=== PATIENT | female | born 1930 | race Caucasian/White ===

== ENCOUNTER 2017-03-27 17:57 | Emergency (ER) | payer OTHER ==
[~2017-03-27] VITALS: Ht 175.3 cm; Wt 60.3 kg
[~2017-03-27 17:57] MED LIST: ACET325 PO; ALPR.25 PO; ALPR.5 PO; ALPR1 PO; AMIT10 PO; AMITIZA; AMITIZA 8 MCG; AMLO5 PO; ANTI DIARRHEA; ARTTEAOPSO BOTHEYES; ASPI81CH PO; ASPI81EC PO; AVINZA; Amitiza24 MCG PO; Amitiza8 MCG PO; Anti-Diarrheal2 MG PO; Artificial Tea1 EACH OP; BACL10 PO; BISA10S PR; BISA5EC PO; Baclofen10 MG PO; CARB25 PO; CARBI50; CARBLEV25 PO; CHLORHEXIDINE FL1 ML MC; CITA20 PO; CODACE30; CONEST.625 PO; CVS DISPOSABLE399 ML PR; Carbidopa-Levo1 EAC1 PO; DIAZ5 PO; DICL25ER PO; DICLOFENAC SOD100 GM TOP; ERGO50000 PO; ESCI10 PO; ESCI20 PO; HYDACE10 PO; HYDACE10B PO; HYDACE7.5 PO; HYDPAM25 PO; HYDR1TAB94 PO; Hydrocodone-Ap1 EA23 PO; LAVAP17G PO; LEVCAR2510 PO; LEVSOD50 PO; LINZESS145 MCG PO; LISHYD1012 PO; LISI10 PO; LISI5 PO; LITH300C; LITH300C PO; LITH300ER PO; LOPE2C PO; Lithium Carbon150 MG PO; MAGCIT300 PO; METPRE4DP PO; MIRT15 PO; Macrobid 100 M100 MG PO; Milk Of Ma400 MG/5 M PO; Mirtazapine7.5 MG PO; POLY17UD PO; POTCHL10ER PO; PROP30DR OP; Percocet 5-3251 EACH PO; QUET100 PO; QUET200 PO; QUET25 PO; QUET300 PO; SENN187 PO; SENOKOT S; Synthroid25 MCG PO; VITAMIN B50 COMPLEX; VOLTAREN; Voltaren100 GM TP
[2017-03-27 18:49] LABS: BASOPHILS ABSOLUTE AUTO 0.03 K/mm3 (0.00-0.23); BASOPHILS PERCENT AUTO 0 % (0-2); EOSINOPHILS ABSOLUTE AUTO 0.09 K/mm3 (0.00-0.68); EOSINOPHILS PERCENT AUTO 1 % (0-6); Hematocrit 37.5 % (33.0-51.0); IMMATURE GRAN ABSOLUTE AUTO 0.02 K/mm3 (0.00-0.10); IMMATURE GRAN PERCENT AUTO 0 % (0-1); LYMPHOCYTES ABSOLUTE AUTO 1.49 K/mm3 (0.84-5.20); LYMPHOCYTES PERCENT AUTO 18 % (21-46); MONOCYTES ABSOLUTE AUTO 0.89 K/mm3 (0.16-1.47); MONOCYTES PERCENT AUTO 11 % (4-13); Mean Corpuscular HGB 29.9 pg (26.0-34.0); Mean Corpuscular Volume 94 fL (80-100); Mean Platelet Volume 9.8 fL (9.1-12.4); NEUTROPHILS ABSOLUTE AUTO 5.86 K/mm3 (1.96-9.15); NEUTROPHILS PERCENT AUTO 70 % (41-73); Platelet Count 216 K/mm3 (150-400); RDW Coefficient Variation 13.5 % (11.7-14.2); Red Blood Cell Count 4.01 M/mm3 (3.80-5.20); White Blood Cell Count 8.38 K/mm3 (4.00-11.30)
[2017-03-27 18:58] LABS: Source, Urine Clean Catch
[2017-03-27 19:05] LABS: Calcium, Blood 8.8 mg/dL (8.5-10.1); Creatinine, Blood 1.22 mg/dL (0.40-1.00); Potassium, Blood 4.3 mmol/L (3.5-5.5)
[2017-03-27 19:09] LABS: Appearance, Urine Clear (Clear); Bilirubin, Urine Neg (Neg); Blood, Urine 2+ (Neg); Color, Urine Yellow (P-Yellow); Glucose Qualitative, Urine Neg (Neg); Ketones, Urine Neg (Neg); Leukocyte Esterase, Urine 3+ (Neg); Nitrite, Urine Neg (Neg); Protein, Urine 1+ (Neg); Specific Gravity, Urine 1.005 (1.003-1.022); Urobilinogen, Urine NORM (Normal); pH, Urine 6.5 (5.0-8.0)
[2017-03-27 20:22] LABS: Bacteria Few /hpf; Red Blood Cells, Urine 0-2 /hpf (0-2); Squamous Epithelial Cells Not Seen /hpf (Few)
[2017-03-27] MEDS ORDERED: Bactrim Ds Tab1 EACH PO (20:35)
[2017-07-06] MEDS ORDERED: AMLO10 PO (02:44)
[2017-07-06] MEDS ORDERED: Citroma296 ML (02:44)
[2017-07-06] MEDS ORDERED: ONDA8 PO (02:44)
[2017-07-06] MEDS ORDERED: CITROMA (02:44)
[2017-07-06] MEDS ORDERED: Enulose10 GM/15 M PO (02:45)
[2017-07-06] MEDS ORDERED: ESCI20 PO (02:45)
[2017-07-06] MEDS ORDERED: LOPE2C PO (02:46)
[2017-07-06] MEDS ORDERED: Lithium Carbon150 MG PO (02:46)
[2017-07-06] MEDS ORDERED: Macrodantin100 MG PO (02:47)
[2017-07-06] MEDS ORDERED: LINZESS145 MCG PO (02:47)
[2017-07-06] MEDS ORDERED: QUET100 PO (02:47)
[2017-07-06] MEDS ORDERED: ALPR.5 PO (02:48)
[2017-07-06] MEDS ORDERED: MIRT15 PO (02:48)
[2017-07-06] MEDS ORDERED: Carbidopa-Levo1 EAC1 PO (02:48)
== END 2017-03-27 22:30 | disposition home or self-care (01) ==
LOC: ER 17:57
PROVIDERS: Emergency Medicine
DX: N39.0 Urinary tract infection, site not specified (principal); Z88.0 Allergy status to penicillin; Z79.899 Other long term (current) drug therapy; F03.90 Unspecified dementia, unspecified severity, without behavioral disturbance, psychotic disturbance, mood disturbance, and anxiety; F41.9 Anxiety disorder, unspecified; F32.9 Major depressive disorder, single episode, unspecified; J44.9 Chronic obstructive pulmonary disease, unspecified; I50.9 Heart failure, unspecified; N18.9 Chronic kidney disease, unspecified
CPT/HCPCS: 36415; 80048; 81001; 85025; 87077; 87086; 87186; 99283; P9612

== ENCOUNTER 2017-04-23 08:35 | Emergency (ER) | payer OTHER ==
[~2017-04-23] VITALS: Ht 172.7 cm; Wt 59.0 kg
[~2017-04-23 08:35] MED LIST changes: +Bactrim Ds Tab1 EACH PO
[2017-04-23] MEDS ORDERED: BACL10 PO (08:51)
[2017-04-23 09:33] LABS: BASOPHILS ABSOLUTE AUTO 0.03 K/mm3 (0.00-0.23); BASOPHILS PERCENT AUTO 0 % (0-2); EOSINOPHILS ABSOLUTE AUTO 0.05 K/mm3 (0.00-0.68); EOSINOPHILS PERCENT AUTO 1 % (0-6); Hematocrit 41.6 % (33.0-51.0); Hemoglobin 12.8 g/dL (11.5-16.0); IMMATURE GRAN ABSOLUTE AUTO 0.04 K/mm3 (0.00-0.10); IMMATURE GRAN PERCENT AUTO 0 % (0-1); LYMPHOCYTES ABSOLUTE AUTO 0.56 K/mm3 (0.84-5.20); LYMPHOCYTES PERCENT AUTO 5 % (21-46); MONOCYTES ABSOLUTE AUTO 0.19 K/mm3 (0.16-1.47); MONOCYTES PERCENT AUTO 2 % (4-13); Mean Corpuscular HGB 29.7 pg (26.0-34.0); Mean Corpuscular HGB Conc 30.8 g/dL (31.5-36.5); Mean Corpuscular Volume 97 fL (80-100); Mean Platelet Volume 9.5 fL (9.1-12.4); NEUTROPHILS ABSOLUTE AUTO 10.19 K/mm3 (1.96-9.15); NEUTROPHILS PERCENT AUTO 92 % (41-73); Platelet Count 267 K/mm3 (150-400); RDW Coefficient Variation 14.4 % (11.7-14.2); RDW Standard Deviation 50.8 fL (35.1-46.3); Red Blood Cell Count 4.31 M/mm3 (3.80-5.20); White Blood Cell Count 11.06 K/mm3 (4.00-11.30)
[2017-04-23 09:59] LABS: Albumin, Blood 3.7 g/dL (3.4-5.0); Bilirubin, Total 0.6 mg/dL (0.1-1.0); Bun/Creatinine Ratio 16.9 (12.0-20.0); Calcium, Blood 9.4 mg/dL (8.5-10.1); Creatinine, Blood 1.36 mg/dL (0.40-1.00); Globulin, Blood 3.8 g/dL (2.2-4.0); Potassium, Blood 4.2 mmol/L (3.5-5.5); Total Protein, Blood 7.5 g/dL (6.4-8.2)
[2017-04-23 10:39] LABS: Lithium <0.20 mmol/L (0.60-1.20)
[2017-04-23] MEDS ORDERED: Macrobid 100 M100 MG PO (11:02)
[2017-07-06] MEDS ORDERED: CITROMA (02:44)
[2017-07-06] MEDS ORDERED: Citroma296 ML (02:44)
[2017-07-06] MEDS ORDERED: ONDA8 PO (02:44)
[2017-07-06] MEDS ORDERED: AMLO10 PO (02:44)
[2017-07-06] MEDS ORDERED: ESCI20 PO (02:45)
[2017-07-06] MEDS ORDERED: Enulose10 GM/15 M PO (02:45)
[2017-07-06] MEDS ORDERED: LOPE2C PO (02:46)
[2017-07-06] MEDS ORDERED: Lithium Carbon150 MG PO (02:46)
[2017-07-06] MEDS ORDERED: QUET100 PO (02:47)
[2017-07-06] MEDS ORDERED: LINZESS145 MCG PO (02:47)
[2017-07-06] MEDS ORDERED: Macrodantin100 MG PO (02:47)
[2017-07-06] MEDS ORDERED: ALPR.5 PO (02:48)
[2017-07-06] MEDS ORDERED: MIRT15 PO (02:48)
[2017-07-06] MEDS ORDERED: Carbidopa-Levo1 EAC1 PO (02:48)
== END 2017-04-23 13:45 | disposition home or self-care (01) ==
LOC: ER 08:35
PROVIDERS: Emergency Medicine
DX: N39.0 Urinary tract infection, site not specified (principal); Z88.0 Allergy status to penicillin; Z88.8 Allergy status to other drugs, medicaments and biological substances; Z79.899 Other long term (current) drug therapy; Z79.891 Long term (current) use of opiate analgesic; F03.90 Unspecified dementia, unspecified severity, without behavioral disturbance, psychotic disturbance, mood disturbance, and anxiety; F41.9 Anxiety disorder, unspecified; F32.9 Major depressive disorder, single episode, unspecified; F31.9 Bipolar disorder, unspecified; J44.9 Chronic obstructive pulmonary disease, unspecified; I50.9 Heart failure, unspecified; F17.210 Nicotine dependence, cigarettes, uncomplicated
CPT/HCPCS: 36415; 80053; 80178; 83690; 85025; 96361; 96365; 99283; J0696; J7030

== ENCOUNTER 2017-04-29 10:12 | Emergency (ER) | payer OTHER ==
[~2017-04-29] VITALS: Ht 172.7 cm; Wt 59.0 kg
[2017-04-29] MEDS ORDERED: AMLO10 PO (10:28)
[2017-04-29] MEDS ORDERED: Clotrimazole-Be15 GM TOP (10:47)
[2017-04-29 10:54] LABS: Source, Urine Catheter
[2017-04-29 11:02] LABS: Bilirubin, Urine Neg (Neg); Blood, Urine Neg (Neg); Glucose Qualitative, Urine Neg (Neg); Ketones, Urine Neg (Neg); Leukocyte Esterase, Urine Neg (Neg); Nitrite, Urine Neg (Neg); Protein, Urine Neg (Neg); Specific Gravity, Urine 1.005 (1.003-1.022); Urobilinogen, Urine NORM (Normal)
[2017-04-29 11:09] LABS: BASOPHILS ABSOLUTE AUTO 0.05 K/mm3 (0.00-0.23); BASOPHILS PERCENT AUTO 1 % (0-2); EOSINOPHILS ABSOLUTE AUTO 0.15 K/mm3 (0.00-0.68); EOSINOPHILS PERCENT AUTO 2 % (0-6); Hematocrit 40.1 % (33.0-51.0); Hemoglobin 12.5 g/dL (11.5-16.0); IMMATURE GRAN ABSOLUTE AUTO 0.08 K/mm3 (0.00-0.10); IMMATURE GRAN PERCENT AUTO 1 % (0-1); LYMPHOCYTES ABSOLUTE AUTO 1.62 K/mm3 (0.84-5.20); LYMPHOCYTES PERCENT AUTO 19 % (21-46); MONOCYTES ABSOLUTE AUTO 0.87 K/mm3 (0.16-1.47); MONOCYTES PERCENT AUTO 10 % (4-13); Mean Corpuscular HGB 29.2 pg (26.0-34.0); Mean Corpuscular HGB Conc 31.2 g/dL (31.5-36.5); NEUTROPHILS ABSOLUTE AUTO 5.86 K/mm3 (1.96-9.15); NEUTROPHILS PERCENT AUTO 68 % (41-73); Platelet Count 276 K/mm3 (150-400); RDW Coefficient Variation 15.1 % (11.7-14.2); RDW Standard Deviation 52.2 fL (35.1-46.3); Red Blood Cell Count 4.28 M/mm3 (3.80-5.20); White Blood Cell Count 8.63 K/mm3 (4.00-11.30)
[2017-04-29 11:13] LABS: Appearance, Urine Clear (Clear); Color, Urine Pale Yellow (P-Yellow)
[2017-04-29 11:14] LABS: Mean Corpuscular Volume 94 fL (80-100)
[2017-04-29 11:28] LABS: Albumin, Blood 3.2 g/dL (3.4-5.0); Albumin/Globulin Ratio 0.7 (0.8-1.8); Bilirubin, Total 0.4 mg/dL (0.1-1.0); Bun/Creatinine Ratio 15.7 (12.0-20.0); Calcium, Blood 9.9 mg/dL (8.5-10.1); Creatinine, Blood 1.27 mg/dL (0.40-1.00); Globulin, Blood 4.4 g/dL (2.2-4.0); Potassium, Blood 4.6 mmol/L (3.5-5.5); Total Protein, Blood 7.6 g/dL (6.4-8.2)
[2017-04-29 11:57] LABS: Influenza A Negative (NEGATIVE); Influenza B Negative (NEGATIVE)
[2017-04-29] MEDS ORDERED: Prednisone20 MG PO (13:00)
[2017-04-29] MEDS ORDERED: Zithromax250 MG PO (13:00)
[2017-07-06] MEDS ORDERED: ONDA8 PO (02:44)
[2017-07-06] MEDS ORDERED: CITROMA (02:44)
[2017-07-06] MEDS ORDERED: Citroma296 ML (02:44)
[2017-07-06] MEDS ORDERED: AMLO10 PO (02:44)
[2017-07-06] MEDS ORDERED: Enulose10 GM/15 M PO (02:45)
[2017-07-06] MEDS ORDERED: ESCI20 PO (02:45)
[2017-07-06] MEDS ORDERED: Lithium Carbon150 MG PO (02:46)
[2017-07-06] MEDS ORDERED: LOPE2C PO (02:46)
[2017-07-06] MEDS ORDERED: QUET100 PO (02:47)
[2017-07-06] MEDS ORDERED: Macrodantin100 MG PO (02:47)
[2017-07-06] MEDS ORDERED: LINZESS145 MCG PO (02:47)
[2017-07-06] MEDS ORDERED: ALPR.5 PO (02:48)
[2017-07-06] MEDS ORDERED: Carbidopa-Levo1 EAC1 PO (02:48)
[2017-07-06] MEDS ORDERED: MIRT15 PO (02:48)
== END 2017-04-29 13:18 | disposition home or self-care (01) ==
LOC: ER 10:12
PROVIDERS: Emergency Medicine
DX: J44.1 Chronic obstructive pulmonary disease with (acute) exacerbation (principal); N18.9 Chronic kidney disease, unspecified; F03.90 Unspecified dementia, unspecified severity, without behavioral disturbance, psychotic disturbance, mood disturbance, and anxiety; F41.9 Anxiety disorder, unspecified; F31.9 Bipolar disorder, unspecified; I50.9 Heart failure, unspecified; F17.210 Nicotine dependence, cigarettes, uncomplicated; Z88.0 Allergy status to penicillin; Z91.09 Other allergy status, other than to drugs and biological substances; Z79.899 Other long term (current) drug therapy
CPT/HCPCS: 36415; 71046; 80053; 81003; 85025; 87804; 93005; 93010; 94644; 99283; P9612

== ENCOUNTER 2017-05-19 20:43 | Emergency (ER) | payer OTHER ==
[~2017-05-19] VITALS: Ht 172.7 cm; Wt 56.7 kg
[~2017-05-19 20:43] MED LIST changes: +AMLO10 PO; +Clotrimazole-Be15 GM TOP; +Prednisone20 MG PO; +Zithromax250 MG PO
[2017-05-19 21:43] LABS: BASOPHILS ABSOLUTE AUTO 0.06 K/mm3 (0.00-0.23); BASOPHILS PERCENT AUTO 1 % (0-2); EOSINOPHILS ABSOLUTE AUTO 0.25 K/mm3 (0.00-0.68); EOSINOPHILS PERCENT AUTO 4 % (0-6); Hematocrit 38.1 % (33.0-51.0); Hemoglobin 11.8 g/dL (11.5-16.0); IMMATURE GRAN ABSOLUTE AUTO 0.05 K/mm3 (0.00-0.10); IMMATURE GRAN PERCENT AUTO 1 % (0-1); LYMPHOCYTES ABSOLUTE AUTO 1.86 K/mm3 (0.84-5.20); LYMPHOCYTES PERCENT AUTO 27 % (21-46); MONOCYTES ABSOLUTE AUTO 0.48 K/mm3 (0.16-1.47); MONOCYTES PERCENT AUTO 7 % (4-13); Mean Corpuscular Volume 94 fL (80-100); Mean Platelet Volume 9.1 fL (9.1-12.4); NEUTROPHILS ABSOLUTE AUTO 4.13 K/mm3 (1.96-9.15); NEUTROPHILS PERCENT AUTO 61 % (41-73); Platelet Count 308 K/mm3 (150-400); RDW Coefficient Variation 14.3 % (11.7-14.2); RDW Standard Deviation 49.2 fL (35.1-46.3); Red Blood Cell Count 4.07 M/mm3 (3.80-5.20); White Blood Cell Count 6.83 K/mm3 (4.00-11.30)
[2017-05-19 22:03] LABS: Alanine Aminotransfer (ALT/SGP 7 U/L (12-78); Albumin, Blood 3.3 g/dL (3.4-5.0); Albumin/Globulin Ratio 0.9 (0.8-1.8); Alk Phos 121 U/L (50-136); Anion Gap 8 mmol/L (6-16); Aspartate Aminotrans (AST/SGOT 13 U/L (12-37); Bilirubin, Total 0.1 mg/dL (0.1-1.0); Blood Urea Nitrogen 23 mg/dL (8-24); Bun/Creatinine Ratio 18.4 (12.0-20.0); CO2, Blood 24 mmol/L (21-32); Calcium, Blood 9.1 mg/dL (8.5-10.1); Chloride, Blood 109 mmol/L (98-108); Creatinine, Blood 1.25 mg/dL (0.40-1.00); Globulin, Blood 3.7 g/dL (2.2-4.0); Glomerular Filtration Rate 43 (60-); Glucose, Blood 116 mg/dL (70-99); Potassium, Blood 3.9 mmol/L (3.5-5.5); Sodium, Blood 141 mmol/L (136-145); Troponin I <0.015 ng/mL (0.000-0.040)
[2017-05-19 22:32] LABS: Source, Urine Clean Catch
[2017-05-19 22:37] LABS: Bilirubin, Urine Neg (Neg); Blood, Urine 4+ (Neg); Glucose Qualitative, Urine Neg (Neg); Ketones, Urine Neg (Neg); Leukocyte Esterase, Urine 3+ (Neg); Nitrite, Urine Pos (Neg); Protein, Urine 2+ (Neg); Urobilinogen, Urine NORM (Normal)
[2017-05-19 22:49] LABS: Appearance, Urine Turbid (Clear); Color, Urine Yellow (P-Yellow)
[2017-05-19 22:50] LABS: Bacteria Many /hpf; Red Blood Cells, Urine 0-2 /hpf (0-2); Squamous Epithelial Cells Rare /hpf (Few); White Blood Cells, Urine TNTC /hpf (0-5)
[2017-05-19] MEDS ORDERED: CEPH500 PO (22:58)
[2017-05-19] MEDS ORDERED: Zofran Odt8 MG SL (22:58)
[2017-05-19] MEDS ORDERED: Kristalose20 GM PO (22:58)
[2017-07-06] MEDS ORDERED: Citroma296 ML (02:44)
[2017-07-06] MEDS ORDERED: ONDA8 PO (02:44)
[2017-07-06] MEDS ORDERED: AMLO10 PO (02:44)
[2017-07-06] MEDS ORDERED: CITROMA (02:44)
[2017-07-06] MEDS ORDERED: ESCI20 PO (02:45)
[2017-07-06] MEDS ORDERED: Enulose10 GM/15 M PO (02:45)
[2017-07-06] MEDS ORDERED: LOPE2C PO (02:46)
[2017-07-06] MEDS ORDERED: Lithium Carbon150 MG PO (02:46)
[2017-07-06] MEDS ORDERED: Macrodantin100 MG PO (02:47)
[2017-07-06] MEDS ORDERED: LINZESS145 MCG PO (02:47)
[2017-07-06] MEDS ORDERED: QUET100 PO (02:47)
[2017-07-06] MEDS ORDERED: MIRT15 PO (02:48)
[2017-07-06] MEDS ORDERED: ALPR.5 PO (02:48)
[2017-07-06] MEDS ORDERED: Carbidopa-Levo1 EAC1 PO (02:48)
== END 2017-05-19 23:20 | disposition home or self-care (01) ==
LOC: ER 20:43
PROVIDERS: Emergency Medicine
DX: K59.00 Constipation, unspecified (principal); N39.0 Urinary tract infection, site not specified; F31.9 Bipolar disorder, unspecified; F03.90 Unspecified dementia, unspecified severity, without behavioral disturbance, psychotic disturbance, mood disturbance, and anxiety; Z86.73 Personal history of transient ischemic attack (TIA), and cerebral infarction without residual deficits; Z79.899 Other long term (current) drug therapy
CPT/HCPCS: 36415; 74176; 80053; 81001; 83690; 84484; 85025; 87077; 87086; 87186; 93005; 93010; 99284

== ENCOUNTER → 2017-06-26 | Outpatient (CLI) | payer OTHER ==
[~2017-06-26] MED LIST changes: +CEPH500 PO; +CITROMA; +Citroma296 ML; +Enulose10 GM/15 M PO; +Kristalose20 GM PO; +Macrodantin100 MG PO; +ONDA8 PO; +Zofran Odt8 MG SL
[2017-06-26 11:31] LABS: Bilirubin, Urine Neg (Neg); Blood, Urine Neg (Neg); Glucose Qualitative, Urine Neg (Neg); Ketones, Urine Neg (Neg); Leukocyte Esterase, Urine Neg (Neg); Nitrite, Urine Neg (Neg); Protein, Urine Neg (Neg); Urobilinogen, Urine NORM (Normal)
[2017-06-26 12:13] LABS: Appearance, Urine Clear (Clear); Color, Urine Yellow (P-Yellow)
== END | disposition home or self-care (01) ==
LOC: LAB 11:20 → LAB SHORT 11:20
PROVIDERS: Family Medicine
DX: N39.0 Urinary tract infection, site not specified (principal)
CPT/HCPCS: 81003